=== PATIENT | male | born 1935 | race Caucasian/White ===

== ENCOUNTER 2024-05-27 15:57 | Outpatient (CLI) | payer MEDICARE, SELFPAY | END 2024-05-27 15:58 | disposition home or self-care (01) | LOC: CHSLAB 16:17 | PROVIDERS: PCP Specialist; Visit Provider Specialist | DX: C43.22 Malignant melanoma of left ear and external auricular canal (principal); C43.21 Malignant melanoma of right ear and external auricular canal; L82.1 Other seborrheic keratosis | CPT/HCPCS: 88305; 88342 ==

== ENCOUNTER 2024-08-05 12:32 | Outpatient (CLI) | payer MEDICARE, SELFPAY ==
--- NOTE | ~2024-08-05 | US_ITS ---
EXAMINATION: US renal BI DATE: 08/05/2024 14:01 INDICATION: Chronic kidney disease stage IIIB. TECHNIQUE: Multiple ultrasound grayscale images of the kidneys were obtained. COMPARISON: None. FINDINGS: The right kidney measures 10.1 x 6.2 x 5.2 cm. The left kidney measures 10.1 x 5.5 x 4.9 cm. The kidn eys demonstrate normal parenchymal echogenicity. There are cysts in the kidneys measuring up to 5.4 c m on the right. There is no hydronephrosis. The bladder is normal. The prostate is enlarged. IMPRESSION: 1. Normal kidney sizes. No hydronephrosis. 2. Enlarged prostate. Reviewed, dictated and finalized at location A.
== END 2024-08-05 12:33 | disposition home or self-care (01) ==
LOC: ANHIMG 12:35
PROVIDERS: PCP Specialist
DX: N40.0 Benign prostatic hyperplasia without lower urinary tract symptoms (principal); N18.32 Chronic kidney disease, stage 3b
CPT/HCPCS: 76775